=== PATIENT | male | born 1995 | race Caucasian/White ===

== ENCOUNTER → 2016-11-17 23:12 | Emergency (ER) | payer OTHER ==
[2016-11-18 00:59] VITALS: BP 137/66
--- NOTE | 2016-11-18 02:12 | ED ---
Laceration/Wound HPI - HPI Summary HPI Summary: Patient RAMESH with 2 deep lacerations to the right forearm. He states he was intoxicated and dancing alone when he thinks he went through a glass door. There are no apparent FB. Patients roommates called the ambulance and brought him to ED. Denies numbness/tingling, color or temperature changes or other pain. He denies hitting his head or LOC. Patient is in good spirits and denies N/V. - History of Current Complaint Stated Complaint: RT ARM LAC Time Seen by Provider: 11/17/16 23:19 Hx Obtained From: Patient Onset/Duration: Sudden Onset Aggravating: Nothing Alleviating: Nothing Timing: Constant Onset Severity: Mild Current Severity: Mild Pain Intensity: 0 Pain Scale Used: 0-10 Numeric Associated Signs & Symptoms: Negative Related Hx: Dominant Hand (Right) - Allergy/Home Medications Allergies/Adverse Reactions: Allergies Allergy/AdvReac Type Severity Reaction Status Date / Time No Known Allergies Allergy Verified 11/18/16 00:58 Home Medications: Home Medications NK [No Home Medications Reported] 11/18/16 [History Confirmed 11/18/16] PMH/Surg Hx/FS Hx/Imm Hx Previously Healthy: Yes - Immunization History Hx Pertussis Vaccination: No Immunizations Up to Date: Yes Infectious Disease History: Yes Infectious Disease History: Denies: Traveled Outside the [place] in Last 30 Days - Social History Occupation: Employed Full-time Lives: With Family Alcohol Use: Weekly Hx Substance Use: No Substance Use Type: Reports: None Hx Tobacco Use: No Smoking Status (MU): Never Smoked Tobacco Do You Chew or Dip Tobacco: No Review of Systems Constitutional: Negative Eyes: Negative Cardiovascular: Negative Respiratory: Negative Positive: no symptoms reported, see HPI Musculoskeletal: Negative Positive: Other - 1 laceration measuring 6cm over right upper extremity superior to the elbow and 1 laceration measuring 4cm inferior to the elbow Psychological: Normal All Other Systems Reviewed And Are Negative: Yes Physical Exam Triage Information Reviewed: Yes Vital Signs On Initial Exam: Initial Vitals Temp Pulse Resp BP Pulse Ox 99.9 F 94 18 143/76 98 11/17/16 23:34 11/17/16 23:34 11/17/16 23:34 11/17/16 23:34 11/17/16 23:34 Vital Signs Reviewed: Yes Appearance: Positive: Well-Appearing, Well-Nourished Skin: Positive: Warm, Skin Color Reflects Adequate Perfusion, Other - 1 laceration measuring 6cm over right upper extremity superior to the elbow and 1 laceration measuring 4cm inferior to the elbow Head/Face: Positive: Normal Head/Face Inspection Eyes: Positive: EOMI, CRISTIN, Conjunctiva Clear Neck: Positive: Supple, No Lymphadenopathy Respiratory/Lung Sounds: Positive: Clear to Auscultation, Breath Sounds Present Cardiovascular: Positive: Normal, Pulses are Symmetrical in both Upper and Lower Extremities Musculoskeletal: Positive: Normal, Strength/ROM Intact Neurological: Positive: Normal, Sensory/Motor Intact, Alert, Oriented to Person Place, Time Psychiatric: Positive: Normal Procedures - Laceration/Wound Repair 1 Location: upper extremity Description: Linear Anesthesia: Local, 1.0% Length, Depth and Shape: 6cmlength, .5 depth, 1.5cm wide Betadine Prep?: No Irrigated w/ Saline (ccs): 40 Laceration/Wound Explored: clean Debridement: minimal Suture Type: Prolene Number of Sutures: 10 Layer Closure?: No Sterile Dressing Applied?: No 2 Location: upper extremity Description: Linear Anesthesia: 1.0%, Lido Length, Depth and Shape: 3cm length, 1.5 width, .5cm depth Irrigated w/ Saline (ccs): 40 Laceration/Wound Explored: clean Debridement: minimal Suture Type: Prolene Number of Sutures: 8 Layer Closure?: No Sterile Dressing Applied?: No Diagnostics - Vital Signs Vital Signs Temp Pulse Resp BP Pulse Ox 11/18/16 00:30 95 137/66 97 11/18/16 00:01 87 131/53 96 11/18/16 00:00 89 96 11/17/16 23:36 93 98 11/17/16 23:34 99.9 F 94 18 143/76 98 - Laboratory Lab Statement: Any lab studies that have been ordered have been reviewed, and results considered in the medical decision making process. Laceration Repair Course/Dx - Course Course Of Treatment: Patients wound was jet irrigated and cleansed. 1% lidocaine without epi. Minimal debridement. 10 sutures and 8 sutures placed in 2 wounds. Patient tolerated well. Patient discharged with return precautions. - Differential Dx Differental Diagnoses: Abscess, Avulsion, Laceration - Clinical Impression Provider Diagnoses: Laceration Discharge - Discharge Plan Condition: Stable Disposition: HOME Patient Education Materials: Care For Your Stitches (ED), Laceration (ED) Additional Instructions: suture removal in 7-10 days keep gauze wrap for 24 hours, then leave open to air.
== END | disposition home or self-care (01) ==
LOC: ED 23:12
DX: S51.811A Laceration without foreign body of right forearm, initial encounter (principal); W25.XXXA Contact with sharp glass, initial encounter; Y93.9 Activity, unspecified; Y92.9 Unspecified place or not applicable
CPT/HCPCS: 12004; 99282